=== PATIENT | male | born 1980 | race Native Hawaiian/Other Pacific Islander ===

== ENCOUNTER 2025-05-04 17:02 | Inpatient (IN) | payer MEDICARE, OTHER ==
[~2025-05-04] VITALS: Ht 165.1 cm; Wt 76.5 kg
[~2025-05-04 17:02] MED LIST: AMLO-258 PO; AMLO10TA55 PO; ASPI-1450 PO; CLON0.1T2 PO; EMPA10TA3 PO; FLUT1AER IH; FOLI0.8T54 PO; HYDR-4061 PO; HYDR50TA36 PO; HYDR50TA37 PO; ISOS20 PO; ISOS20TA9 PO; LABE100T51 PO; SEVE800T7 PO
[2025-05-04] MEDS ORDERED: CARV3 PO (17:22)
[2025-05-04 19:43] LABS: PLATELET COUNT (AUTO) 247 K/uL (150-450); RED BLOOD CELL COUNT(AUTO) 3.64 MIL/uL (4.50-5.90); RED CELL DISTRIBUTION WIDTH 17.0 % (11.5-14.5); WHITE BLOOD COUNT (AUTO) 7.5 K/uL (4.5-11.0)
[2025-05-04 19:49] LABS: CALCIUM, TOTAL 8.0 mg/dL (8.8-10.5); CREATININE 14.62 mg/dL (0.60-1.30); GLOMERULAR FILTR. RATE CALC 4 mL/min (>60); GLUCOSE,RANDOM 91 mg/dL (70-110); SODIUM SERUM 139 mmol/L (136-145)
[2025-05-04 19:54] LABS: ALCOHOL, BLOOD (SERUM) < 3 mg/dL (0-10)
[2025-05-04 20:02] LABS: TROPONIN I-HIGH SENSITIVITY 182 ng/L (<76); UREA NITROGEN, BLOOD 106 mg/dL (7-18)
[2025-05-04 20:08] LABS: ASPARTATE AMINOTRANSFERASE 31 U/L (15-37); TOTAL PROTEIN, SERUM 7.3 g/dL (6.4-8.2)
[2025-05-04] MEDS ORDERED: ACETAMINOPHEN 325 MG TABLET PO PRN (21:30)
[2025-05-04] MEDS ORDERED: BISACODYL 10 MG RECTAL RECTAL SUPPOSITORY PR PRN (21:30)
[2025-05-04] MEDS ORDERED: ZOLPIDEM TARTRATE 5 MG TABLET PO PRN (21:30)
[2025-05-04] MEDS ORDERED: MAGNESIUM HYDROXIDE SUSPENSION 30 ML UDCUP PO PRN (21:30)
[2025-05-04] MEDS: ONDANSETRON HCL 4 MG/2 ML VIAL IVP PRN (23:10)
[2025-05-04] MEDS: HEPARIN SODIUM,PORCINE 5,000 UNITS/ML VIAL SQ SCH (23:43)
[2025-05-05] VITALS (10 sets, daily range): BP systolic 157–183; BP diastolic 89–118; PULSE 85–103; RESP 18–19; TEMP 97.3–98.5; O2SAT 95–100
[2025-05-05] MEDS: MORPHINE SULFATE 4 MG/ML SYRINGE IVP PRN (01:27)
[2025-05-05] MEDS: HYDROCODONE/ACETAMINOPHEN 5-325 MG TABLET PO PRN (03:33)
[2025-05-05] MEDS: ISOSORBIDE DINITRATE 20 MG TABLET PO SCH (09:00)
[2025-05-05] MEDS: DOCUSATE SODIUM 100 MG CAPSULE PO SCH (09:33)
[2025-05-05] MEDS: EMPAGLIFLOZIN 10 MG TABLET PO SCH (09:34)
[2025-05-05] MEDS: SEVELAMER CARBONATE 800 MG TABLET PO SCH (09:34)
[2025-05-05] MEDS: PANTOPRAZOLE SODIUM 40 MG DR TABLET PO SCH (09:35)
[2025-05-05] MEDS ORDERED: LIDOCAINE/PF 1% 2 ML VIAL ONE (12:00)
[2025-05-05 17:15] LABS: PLATELET COUNT (AUTO) 226 K/uL (150-450); RED BLOOD CELL COUNT(AUTO) 3.74 MIL/uL (4.50-5.90); RED CELL DISTRIBUTION WIDTH 17.0 % (11.5-14.5); WHITE BLOOD COUNT (AUTO) 5.0 K/uL (4.5-11.0)
[2025-05-05 17:18] LABS: CALCIUM, TOTAL 8.2 mg/dL (8.8-10.5); CREATININE 15.83 mg/dL (0.60-1.30); GLOMERULAR FILTR. RATE CALC 3.0 mL/min (>60); GLUCOSE,RANDOM 97.0 mg/dL (70-110); SODIUM SERUM 136.0 mmol/L (136-145)
[2025-05-05 17:26] LABS: UREA NITROGEN, BLOOD 114.0 mg/dL (7-18)
[2025-05-06] VITALS (10 sets, daily range): BP systolic 145–180; BP diastolic 84–107; PULSE 75–84; RESP 18–19; TEMP 97.3–98; O2SAT 96–99
[2025-05-06 06:07] LABS: PLATELET COUNT (AUTO) 186 K/uL (150-450); RED BLOOD CELL COUNT(AUTO) 3.42 MIL/uL (4.50-5.90); RED CELL DISTRIBUTION WIDTH 16.4 % (11.5-14.5); WHITE BLOOD COUNT (AUTO) 4.9 K/uL (4.5-11.0)
[2025-05-06 06:12] LABS: CALCIUM, TOTAL 8.0 mg/dL (8.8-10.5); CREATININE 11.02 mg/dL (0.60-1.30); GLOMERULAR FILTR. RATE CALC 5.0 mL/min (>60); GLUCOSE,RANDOM 84.0 mg/dL (70-110); SODIUM SERUM 137.0 mmol/L (136-145); UREA NITROGEN, BLOOD 70.0 mg/dL (7-18)
[2025-05-07] VITALS (14 sets, daily range): BP systolic 148–183; BP diastolic 80–132; PULSE 69–81; RESP 18–19; TEMP 97.5–98.1; O2SAT 93–98
[2025-05-07 06:13] LABS: PLATELET COUNT (AUTO) 191 K/uL (150-450); RED BLOOD CELL COUNT(AUTO) 3.49 MIL/uL (4.50-5.90); RED CELL DISTRIBUTION WIDTH 16.6 % (11.5-14.5); WHITE BLOOD COUNT (AUTO) 5.7 K/uL (4.5-11.0)
[2025-05-07 06:59] LABS: CALCIUM, TOTAL 8.1 mg/dL (8.8-10.5); CREATININE 13.52 mg/dL (0.60-1.30); GLOMERULAR FILTR. RATE CALC 4.0 mL/min (>60); GLUCOSE,RANDOM 81.0 mg/dL (70-110); SODIUM SERUM 133.0 mmol/L (136-145); UREA NITROGEN, BLOOD 83.0 mg/dL (7-18)
[2025-05-07] MEDS ORDERED: SODIUM CHLORIDE 0.9% 2,000 ML ONE (10:33)
[2025-05-07] MEDS ORDERED: LIDOCAINE/PF 1% 2 ML VIAL ONE (12:00)
[2025-05-07] MEDS: SODIUM POLYSTYRENE SULFONATE 15 GM/60 ML SUSPENSION BOTTLE PO ONE (12:12)
[2025-05-07] MEDS ORDERED: CALC0.2521 PO (14:52)
[2025-05-07] MEDS: ISOSORBIDE DINITRATE 10 MG TABLET PO SCH (16:00)
[2025-05-08 00:17] VITALS: BP 165/100; PULSE 84; RESP 18; TEMP 98.2; O2SAT 95
[2025-05-08 04:14] VITALS: BP 177/103; PULSE 72; RESP 19; TEMP 97.5; O2SAT 96
[2025-05-08 06:51] LABS: PLATELET COUNT (AUTO) 173 K/uL (150-450); RED BLOOD CELL COUNT(AUTO) 3.50 MIL/uL (4.50-5.90); RED CELL DISTRIBUTION WIDTH 17.0 % (11.5-14.5); WHITE BLOOD COUNT (AUTO) 6.0 K/uL (4.5-11.0)
[2025-05-08 07:14] VITALS: BP 167/98; PULSE 76; RESP 18; TEMP 98.2; O2SAT 97
[2025-05-08 07:18] LABS: CALCIUM, TOTAL 8.2 mg/dL (8.8-10.5); CREATININE 9.08 mg/dL (0.60-1.30); GLOMERULAR FILTR. RATE CALC 6.0 mL/min (>60); GLUCOSE,RANDOM 118.0 mg/dL (70-110); SODIUM SERUM 135.0 mmol/L (136-145); UREA NITROGEN, BLOOD 46.0 mg/dL (7-18)
[2025-05-08 08:34] LABS: RBC MORPHOLOGY COMMENT ABNORMAL RBC MORPH
[2025-05-08] MEDS: ISOSORBIDE DINITRATE 10 MG TABLET PO SCH (08:47)
[2025-05-08 11:50] VITALS: BP 163/110; PULSE 74; TEMP 98.2
[2025-05-08] MEDS: LABETALOL HCL 100 MG TABLET PO SCH (13:06)
== END 2025-05-08 14:20 | disposition home or self-care (01) | DRG 291 ==
LOC: EMS 17:02 → EDH 21:02 → 5S 05-05 02:09 → EDH 05-05 02:09 → 5S 05-05 04:48
PROVIDERS: ADMIT Internal Medicine; ATTEND Internal Medicine
PROC: 5A1D70Z Performance of Urinary Filtration, Intermittent, Less than 6 Hours Per Day (ICD-10-PCS; principal; 2025-05-05)
PROC: 0W9G3ZZ Drainage of Peritoneal Cavity, Percutaneous Approach (ICD-10-PCS; 2025-05-06)
PROC: 5A1D70Z Performance of Urinary Filtration, Intermittent, Less than 6 Hours Per Day (ICD-10-PCS; 2025-05-07)
DX: I13.2 Hypertensive heart and chronic kidney disease with heart failure and with stage 5 chronic kidney disease, or end stage renal disease (principal); I50.43 Acute on chronic combined systolic (congestive) and diastolic (congestive) heart failure; N18.6 End stage renal disease; R18.8 Other ascites; I16.1 Hypertensive emergency; N25.81 Secondary hyperparathyroidism of renal origin; E87.5 Hyperkalemia; E83.39 Other disorders of phosphorus metabolism; D63.1 Anemia in chronic kidney disease; K21.9 Gastro-esophageal reflux disease without esophagitis; E11.22 Type 2 diabetes mellitus with diabetic chronic kidney disease; F12.90 Cannabis use, unspecified, uncomplicated; F17.200 Nicotine dependence, unspecified, uncomplicated; Z91.199 Patient's noncompliance with other medical treatment and regimen due to unspecified reason; Z99.2 Dependence on renal dialysis
CPT/HCPCS: 49083; 71045; 76942; 80048; 80076; 83690; 83735; 84484; 85025; 85610; 87081; 87340; 90935; 93005; 96374; 96375; 99285; G0378; G0480; J1171; J1200; J1644; J2270; J2405; J3490; J7030; 36415-L1; 36415-TC

== ENCOUNTER 2025-05-12 17:02 | Emergency (ER) | payer MEDICARE, OTHER ==
[~2025-05-12] VITALS: Ht 167.6 cm; Wt 68.0 kg
[~2025-05-12 17:02] MED LIST changes: +CALC0.2521 PO; +CARV3 PO
[2025-05-12 18:31] VITALS: TEMP 97.7
[2025-05-12 18:47] LABS: PLATELET COUNT (AUTO) 217 K/uL (150-450); RED BLOOD CELL COUNT(AUTO) 3.42 MIL/uL (4.50-5.90); RED CELL DISTRIBUTION WIDTH 16.5 % (11.5-14.5); WHITE BLOOD COUNT (AUTO) 8.2 K/uL (4.5-11.0)
[2025-05-12 18:56] LABS: CALCIUM, TOTAL 8.5 mg/dL (8.8-10.5); CREATININE 11.47 mg/dL (0.60-1.30); GLOMERULAR FILTR. RATE CALC 5 mL/min (>60); GLUCOSE,RANDOM 88 mg/dL (70-110); SODIUM SERUM 141 mmol/L (136-145); UREA NITROGEN, BLOOD 79 mg/dL (7-18)
[2025-05-12 19:01] LABS: ASPARTATE AMINOTRANSFERASE 42 U/L (15-37); TOTAL PROTEIN, SERUM 7.2 g/dL (6.4-8.2)
[2025-05-12 19:04] LABS: LACTIC ACID 0.6 mmol/L (0.4-2.0)
[2025-05-12 19:06] LABS: TROPONIN I-HIGH SENSITIVITY 102 ng/L (<76)
[2025-05-12 19:22] LABS: RBC MORPHOLOGY COMMENT ABNORMAL RBC MORPH
[2025-05-12] MEDS ORDERED: HYDR-4062 PO (19:39)
[2025-05-12] MEDS: HYDROCODONE/ACETAMINOPHEN 5-325 MG TABLET PO ONE (19:41)
[2025-05-12 19:45] VITALS: BP 164/95; PULSE 88; RESP 20; O2SAT 98
== END 2025-05-12 20:30 | disposition home or self-care (01) ==
LOC: EMS 17:02
DX: R18.8 Other ascites (principal); N18.6 End stage renal disease; I50.9 Heart failure, unspecified; Z79.51 Long term (current) use of inhaled steroids; Z79.82 Long term (current) use of aspirin; Z79.899 Other long term (current) drug therapy; Z99.2 Dependence on renal dialysis; Z88.8 Allergy status to other drugs, medicaments and biological substances
CPT/HCPCS: 80048; 80076; 83605; 83690; 84484; 85025; 99283

== ENCOUNTER → 2025-06-25 | Outpatient (CLI) | payer MEDICARE, OTHER ==
[~2025-06-25] MED LIST changes: -AMLO10TA55 PO; -CARV3 PO; -HYDR-4061 PO; +HYDR-4062 PO; -HYDR50TA37 PO; -ISOS20 PO; +PERCT PO
== END | disposition home or self-care (01) ==
LOC: RADMN 09:44
PROVIDERS: ATTEND Internal Medicine
DX: R18.8 Other ascites (principal); I13.0 Hypertensive heart and chronic kidney disease with heart failure and stage 1 through stage 4 chronic kidney disease, or unspecified chronic kidney disease; E11.22 Type 2 diabetes mellitus with diabetic chronic kidney disease; I50.9 Heart failure, unspecified; N18.9 Chronic kidney disease, unspecified; I25.10 Atherosclerotic heart disease of native coronary artery without angina pectoris; J44.9 Chronic obstructive pulmonary disease, unspecified; K74.60 Unspecified cirrhosis of liver; Z99.2 Dependence on renal dialysis; Z82.49 Family history of ischemic heart disease and other diseases of the circulatory system; Z84.19 Family history of other disorders of kidney and ureter; Z83.3 Family history of diabetes mellitus
CPT/HCPCS: 49083; C1729; 76942